=== PATIENT | female | born 1970 | race Caucasian/White ===

== ENCOUNTER 2018-01-23 13:34 | Outpatient (CLI) | payer OTHER ==
[~2018-01-23] VITALS: Ht 160 cm; Wt 68.0 kg
[2018-01-23] MEDS ORDERED: PREDNISONE 10 M10 MG PO (13:47)
[2018-01-23] MEDS ORDERED: FENOFIBRATE160 MG PO (13:47)
[2018-01-23] MEDS ORDERED: ZOLOFT50 MG PO (13:47)
[2018-01-23] MEDS ORDERED: HUMIRA10 MG/0.2 SUBQ (13:47)
[2018-01-23] MEDS ORDERED: PREMPHASE 0.621 EAC1 PO (13:47)
[2018-01-23] MEDS ORDERED: HYDROCODONE-AP1 EAC6 PO (13:48)
[2018-01-23] MEDS ORDERED: OXYCONTIN10 M1 PO (13:48)
[2018-01-23 14:14] LABS: ABSOLUTE BASOPHILS 0.1 thou/uL (0.0-0.2); ABSOLUTE EOSINOPHILS 0.1 thou/uL (0.0-0.7); ABSOLUTE LYMPHOCYTES 3.6 thou/uL (0.8-5.3); ABSOLUTE MONOCYTES 0.8 thou/uL (0.0-1.2); ABSOLUTE NEUTROPHILS 8.5 thou/uL (1.6-8.1); BASOPHILS 0.5 %; EOSINOPHILS 0.7 %; HEMATOCRIT 46.5 % (37.0-47.0); HEMOGLOBIN 15.6 gm/dL (12.0-15.0); LYMPHOCYTES 27.7 %; MCH 30.4 pg (26.0-34.0); MCHC 33.6 g/dL (28.0-37.0); MCV 90.5 fL (80.0-100.0); MONOCYTES 6.5 %; MPV 7.8 fl. (7.2-11.1); NUCLEATED RBCS 0 /100WBC; PLATELET COUNT* 195 thou/uL (150-400); POLYS 64.6 %; RBC 5.14 mil/uL (4.20-5.00); RDW-CV 13.4 % (10.5-14.5); WBC 13.1 thou/uL (4.0-11.0)
[2018-01-23 14:20] LABS: CALCIUM 9.1 mg/dL (8.5-10.1); CREATININE 1.1 mg/dL (0.6-1.3)
[2018-01-23 14:22] LABS: APTT 23.1 Seconds (25.0-31.3); INR 0.9; PROTIME 9.1 Seconds (9.20-11.50)
[2018-01-23 14:25] LABS: ALBUMIN 2.7 g/dL (3.4-5.0); TOTAL BILIRUBIN 0.2 mg/dL (<0.1-1.0); TOTAL PROTEIN 6.7 g/dL (6.4-8.2)
[2018-01-23] MEDS ORDERED: XARELTO20 MG PO (15:13)
[2018-01-23] MEDS ORDERED: XARELTO15 MG PO (15:13)
[2018-01-23 15:37] VITALS: BP 113/72
== END 2018-01-23 15:38 | disposition home or self-care (01) ==
LOC: M.ERS 15:38
PROVIDERS: Personal Emergency Response Attendant
DX: M79.604 Pain in right leg (principal); M79.89 Other specified soft tissue disorders